=== PATIENT | female | born 1990 | race Caucasian/White ===

== ENCOUNTER 2017-01-23 20:58 | Emergency (ER) | payer OTHER, BC ==
[~2017-01-23] VITALS: Ht 149.9 cm; Wt 46.9 kg
[2017-01-23 21:04] VITALS: TEMP 37.4; Ht 149.9 cm; Wt 46.9 kg
--- NOTE | 2017-01-23 21:35 | EMERGENCY ROOM VISIT NOTE ---
History First contact with patient: 21:18 Chief Complaint: URINARY SYMPTOMS Stated Complaint: BACK PAIN, ABD [AIN,PAIN WHEN URINATE, NAUSEA Nursing Triage Summary: Urinary freq x 1 week. Nausea two days ago. B/L flank pain. History of Present Illness The patient is a 26 year old female who presents to the Emergency Room with complaints of a 4 day history of flank pain and urinary symptoms. The patient has had increasing urinary frequency, cloudy urine, dysuria described as pinching on urination, and flank pain that is radiating up her spine as well as towards the abdomen. He back pain acutely worsened when she woke up this morning and is now a 10/10. She also states that there has been blood on toilet paper when wiping after urination this morning. She denies any fevers or chill, vomiting, abdominal pain, diarrhea or constipation. Review of Systems See HPI for pertinent positives and negatives. A total of ten systems were reviewed and were otherwise negative. Past Medical/Surgical History Medical Problems: (1) No significant active problems Social History Smoking Status: Never Smoker Drug Use: none Current/Historical Medications Scheduled Ciprofloxacin Hcl (Cipro), 500 MG PO BID Allergies Coded Allergies: Cefaclor (Unverified Allergy, Unknown, RASH, 01/23/17) Physical Exam Vital Signs Date Time Temp Pulse Resp B/P Pulse Ox O2 Delivery O2 Flow Rate FiO2 01/23/17 22:58 75 16 118/81 99 Room Air 01/23/17 21:04 37.4 90 18 137/95 98 Room Air Physical Exam GENERAL: Awake, alert, well-appearing, in no distress HENT: Normocephalic, atraumatic. Oropharynx unremarkable. EYES: Normal conjunctiva. Sclera non-icteric. NECK: Supple. Trachea Midline. No nuchal rigidity. RESPIRATORY: Clear to auscultation. CARDIAC: Regular rate, normal rhythm. Extremities warm and well perfused. Pulses equal. ABDOMEN: Soft, non-distended. No tenderness to palpation. No rebound or guarding. No masses. RECTAL: Deferred. MUSCULOSKELETAL: Chest examination reveals no tenderness. The back is symmetrical on inspection without obvious abnormality. There is moderate CVA tenderness to palpation. LOWER EXTREMITIES: Calves are equal size bilaterally and non-tender. No edema. No discoloration. NEURO: Normal sensorium. No sensory or motor deficits noted. SKIN: No rash or jaundice noted. Medical Decision & Procedures Laboratory Results 01/23/17 22:00 Red Blood Count 4.38, Mean Corpuscular Volume 87.9, Mean Corpuscular Hemoglobin 30.1, Mean Corpuscular Hemoglobin Concent 34.3, Mean Platelet Volume 10.0, Neutrophils (%) (Auto) 71.5, Lymphocytes (%) (Auto) 18.2, Monocytes (%) (Auto) 9.2, Eosinophils (%) (Auto) 0.7, Basophils (%) (Auto) 0.2, Neutrophils # (Auto) 8.60, Lymphocytes # (Auto) 2.19, Monocytes # (Auto) 1.11, Eosinophils # (Auto) 0.09, Basophils # (Auto) 0.02 01/23/17 22:00 Test 01/23/17 22:00 White Blood Count 12.04 K/uL (4.8-10.8) Red Blood Count 4.38 M/uL (4.2-5.4) Hemoglobin 13.2 g/dL (12.0-16.0) Hematocrit 38.5 % (37-47) Mean Corpuscular Volume 87.9 fL (80-100) Mean Corpuscular Hemoglobin 30.1 pg (25-34) Mean Corpuscular Hemoglobin Concent 34.3 g/dl (32-36) Platelet Count 244 K/uL (130-400) Mean Platelet Volume 10.0 fL (7.4-10.4) Neutrophils (%) (Auto) 71.5 % Lymphocytes (%) (Auto) 18.2 % Monocytes (%) (Auto) 9.2 % Eosinophils (%) (Auto) 0.7 % Basophils (%) (Auto) 0.2 % Neutrophils # (Auto) 8.60 K/uL (1.4-6.5) Lymphocytes # (Auto) 2.19 K/uL (1.2-3.4) Monocytes # (Auto) 1.11 K/uL (0.11-0.59) Eosinophils # (Auto) 0.09 K/uL (0-0.5) Basophils # (Auto) 0.02 K/uL (0-0.2) RDW Standard Deviation 41.2 fL (36.4-46.3) RDW Coefficient of Variation 12.7 % (11.5-14.5) Immature Granulocyte % (Auto) 0.2 % Immature Granulocyte # (Auto) 0.03 K/uL (0.00-0.02) Red Blood Cell Morphology Unremarkable Urine Color YELLOW Urine Appearance CLEAR (CLEAR) Urine pH 6.5 (4.5-7.5) Urine Specific [place] 1.014 (1.000-1.030) Urine Protein 1+ (NEG) Urine Glucose (UA) NEG (NEG) Urine Ketones NEG (NEG) Urine Occult Blood 2+ (NEG) Urine Nitrite NEG (NEG) Urine Bilirubin NEG (NEG) Urine Urobilinogen NEG (NEG) Urine Leukocyte Esterase LARGE (NEG) Urine WBC (Auto) >30 /hpf (0-5) Urine RBC (Auto) >30 /hpf (0-4) Urine Hyaline Casts (Auto) 1-5 /lpf (0-5) Urine Epithelial Cells (Auto) 5-10 /lpf (0-5) Urine Bacteria (Auto) NEG (NEG) Urine Test NEG (NEG) Anion Gap 5.0 mmol/L (3-11) Est Creatinine Clear Calc Drug Dose 83.4 ml/min Estimated GFR () 138.2 Estimated GFR (Non- 119.2 BUN/Creatinine Ratio 22.8 (10-20) Calcium Level 8.9 mg/dl (8.5-10.1) Date/Time Source Procedure Growth Status 01/23/17 22:00 Urine , Clean Catch Urine Culture - Final Staphylococcus Saprophyticus Complete Medications Administered Medications (Trade) Dose Ordered Sig/Jimmy Route Start Time Stop Time Status Last Admin Dose Admin Sodium Chloride (Nss 1000ml) 1,000 ml @ 999 mls/hr Q1H1M STAT IV 01/23/17 21:36 01/23/17 22:36 DC 01/23/17 22:09 999 MLS/HR Ondansetron HCl (Zofran Inj) 4 mg NOW STAT IV 01/23/17 21:36 01/23/17 21:38 DC 01/23/17 22:09 4 MG Morphine Sulfate (MoRPHine SULFATE INJ) 4 mg NOW STAT IV 01/23/17 21:45 01/23/17 21:46 DC 01/23/17 22:09 4 MG Ciprofloxacin (Cipro Tab) 500 mg NOW STAT PO 01/23/17 22:49 01/23/17 22:50 DC 01/23/17 22:59 500 MG Oxycodone HCl (Roxicodone Immediate Rel 5MG Home Pack) 1 homepack UD ONCE PO 01/23/17 23:00 01/23/17 23:01 DC 01/23/17 22:59 1 HOMEPACK Medical Decision Patient is a 26 year old female with a 4 days history of flank pain and urinary symptoms - Labs Ordered: Urine , Urinalysis, CBC, CMP - Medications: IV NS, Morphine, Zofran Urinalysis results indicated and ongoing UTI so patient was agreeable with plan to be discharged home with a course of Ciprofloxacin for her UTI as well as Percocet for pain as needed. Departure Information Dispostion Home / Self-Care Condition GOOD Prescriptions Ciprofloxacin Hcl (CIPRO) 500 Mg Tab 500 MG PO BID for 7 Days, #14 TAB Prov: Gio rFias M.D. 01/23/17 Patient Instructions My [facility]
[2017-01-23] MEDS ORDERED: SODIUM CHLORIDE 0.9% 1000ML 1,000 ML IV STA (21:36)
[2017-01-23] MEDS ORDERED: ONDANSETRON INJ 2 MG/ML 2 ML VIAL IV STA (21:36)
[2017-01-23] MEDS ORDERED: MoRPHine SULFATE 10 MG/ML CARP/VIAL IV STA (21:36)
[2017-01-23] MEDS ORDERED: MoRPHine SULFATE 4 MG/ML 1 ML CARP\\VIAL IV STA (21:45)
[2017-01-23 22:24] LABS: HEMATOCRIT 38.5 % (37-47); MEAN CELL VOLUME 87.9 fL (80-100); MEAN CORPUSCULAR HEMOGLOBIN 30.1 pg (25-34); MEAN CORPUSCULAR HGB CONC 34.3 g/dl (32-36); PLATELET COUNT 244 K/uL (130-400); RED BLOOD COUNT 4.38 M/uL (4.2-5.4); WHITE BLOOD COUNT 12.04 K/uL (4.8-10.8)
[2017-01-23 22:32] LABS: BUN/CREATININE RATIO 22.8 (10-20); CREATININE 0.71 mg/dl (0.60-1.20); POTASSIUM 3.8 mmol/L (3.5-5.1)
[2017-01-23 22:36] LABS: URINE APPEARANCE CLEAR (CLEAR); URINE BILIRUBIN NEG (NEG); URINE COLOR YELLOW; URINE NITRITE NEG (NEG); URINE PH 6.5 (4.5-7.5); URINE SPECIFIC GRAVITY 1.014 (1.000-1.030); UROBILINOGEN NEG (NEG); ZZUR CULT IF INDIC CLEAN CATCH YES
[2017-01-23 22:37] LABS: MANUAL MICROSCOPIC REQUIRED? NO; REVIEW REQ? NO
[2017-01-23 22:42] LABS: CALCIUM 8.9 mg/dl (8.5-10.1)
[2017-01-23] MEDS ORDERED: CIPR-255 PO (22:49)
[2017-01-23] MEDS ORDERED: CIPROFLOXACIN 500 MG TAB PO STA (22:49)
--- NOTE | 2017-01-23 22:49 | EMERGENCY ROOM VISIT NOTE ---
History Report prepared by Dilma: Marcie Omalley Under the Supervision of: Dr. Gio Frias M.D. First contact with patient: 21:18 Chief Complaint: URINARY SYMPTOMS Stated Complaint: BACK PAIN, ABD [AIN,PAIN WHEN URINATE, NAUSEA Nursing Triage Summary: Urinary freq x 1 week. Nausea two days ago. B/L flank pain. History of Present Illness The patient is a 26 year old female who presents to the Emergency Room with complaints of worsening urinary symptoms for the past week. The patient notes increased urinary frequency and dysuria that she describes as "pinching" with urination. She has cloudy looking urine. She is also experiencing bilateral flank pain and nausea. Today the patient noticed hematuria and her flank pain worsened. It radiates into her abdomen and her back. The patient rates her pain as a 10/10 in severity. She has been taking AZO for her symptoms. She has a history of vaginal infections, but states that this is unlike those previous infections. Source of History: patient Onset: 1 week ago Position: other (urinary) Symptom Intensity: 10/10 Quality: other ("pinching") Timing: worsening Modifying Factors (Worsening): urination Modifying Factors (Relieving): other (AZO) Associated Symptoms: + abdominal pain, + back pain, + urinary symptoms ( increased frequency and dysuria) Review of Systems See HPI for pertinent positives & negatives. A total of 10 systems reviewed and were otherwise negative. Past Medical & Surgical Medical Problems: (1) No significant active problems Family History No pertinent history stated. Social History Smoking Status: Never Smoker Current/Historical Medications Scheduled Ciprofloxacin Hcl (Cipro), 500 MG PO BID Allergies Coded Allergies: Cefaclor (Unverified Allergy, Unknown, RASH, 01/23/17) Physical Exam Vital Signs Date Time Temp Pulse Resp B/P Pulse Ox O2 Delivery O2 Flow Rate FiO2 01/23/17 22:58 75 16 118/81 99 Room Air 01/23/17 21:04 37.4 90 18 137/95 98 Room Air Physical Exam GENERAL: Patient is uncomfortable appearing and in moderate distress. HEENT: No acute trauma, normocephalic atraumatic, mucous membranes moist, no nasal congestion, no scleral icterus. NECK: No stridor, no adenopathy, no meningismus, trachea is midline. LUNGS: No dyspnea. Clear to auscultation and equal bilaterally. No wheeze, no rhonchi. HEART: Regular rate and rhythm. No murmurs, rubs, gallops appreciated. ABDOMEN: Soft, vague suprapubic abdominal tenderness, bowel sounds positive, no masses appreciated, no peritonitis. BACK: No midline tenderness, bilateral CVA tenderness EXTREMITIES: Normal motion all extremities, no cyanosis, no edema. NEUROLOGIC: Alert and oriented, no acute motor or sensory deficits, no focal weakness, cranial nerves grossly intact. SKIN: No rash, no jaundice, no diaphoresis. Medical Decision & Procedures Laboratory Results 01/23/17 22:00 Red Blood Count 4.38, Mean Corpuscular Volume 87.9, Mean Corpuscular Hemoglobin 30.1, Mean Corpuscular Hemoglobin Concent 34.3, Mean Platelet Volume 10.0, Neutrophils (%) (Auto) 71.5, Lymphocytes (%) (Auto) 18.2, Monocytes (%) (Auto) 9.2, Eosinophils (%) (Auto) 0.7, Basophils (%) (Auto) 0.2, Neutrophils # (Auto) 8.60, Lymphocytes # (Auto) 2.19, Monocytes # (Auto) 1.11, Eosinophils # (Auto) 0.09, Basophils # (Auto) 0.02 01/23/17 22:00 Test 01/23/17 22:00 White Blood Count 12.04 K/uL (4.8-10.8) Red Blood Count 4.38 M/uL (4.2-5.4) Hemoglobin 13.2 g/dL (12.0-16.0) Hematocrit 38.5 % (37-47) Mean Corpuscular Volume 87.9 fL (80-100) Mean Corpuscular Hemoglobin 30.1 pg (25-34) Mean Corpuscular Hemoglobin Concent 34.3 g/dl (32-36) Platelet Count 244 K/uL (130-400) Mean Platelet Volume 10.0 fL (7.4-10.4) Neutrophils (%) (Auto) 71.5 % Lymphocytes (%) (Auto) 18.2 % Monocytes (%) (Auto) 9.2 % Eosinophils (%) (Auto) 0.7 % Basophils (%) (Auto) 0.2 % Neutrophils # (Auto) 8.60 K/uL (1.4-6.5) Lymphocytes # (Auto) 2.19 K/uL (1.2-3.4) Monocytes # (Auto) 1.11 K/uL (0.11-0.59) Eosinophils # (Auto) 0.09 K/uL (0-0.5) Basophils # (Auto) 0.02 K/uL (0-0.2) RDW Standard Deviation 41.2 fL (36.4-46.3) RDW Coefficient of Variation 12.7 % (11.5-14.5) Immature Granulocyte % (Auto) 0.2 % Immature Granulocyte # (Auto) 0.03 K/uL (0.00-0.02) Red Blood Cell Morphology Unremarkable Urine Color YELLOW Urine Appearance CLEAR (CLEAR) Urine pH 6.5 (4.5-7.5) Urine Specific [place] 1.014 (1.000-1.030) Urine Protein 1+ (NEG) Urine Glucose (UA) NEG (NEG) Urine Ketones NEG (NEG) Urine Occult Blood 2+ (NEG) Urine Nitrite NEG (NEG) Urine Bilirubin NEG (NEG) Urine Urobilinogen NEG (NEG) Urine Leukocyte Esterase LARGE (NEG) Urine WBC (Auto) >30 /hpf (0-5) Urine RBC (Auto) >30 /hpf (0-4) Urine Hyaline Casts (Auto) 1-5 /lpf (0-5) Urine Epithelial Cells (Auto) 5-10 /lpf (0-5) Urine Bacteria (Auto) NEG (NEG) Urine Test NEG (NEG) Anion Gap 5.0 mmol/L (3-11) Est Creatinine Clear Calc Drug Dose 83.4 ml/min Estimated GFR () 138.2 Estimated GFR (Non- 119.2 BUN/Creatinine Ratio 22.8 (10-20) Calcium Level 8.9 mg/dl (8.5-10.1) Laboratory results as reviewed by me. Medications Administered Medications (Trade) Dose Ordered Sig/Jimmy Route Start Time Stop Time Status Last Admin Dose Admin Sodium Chloride (Nss 1000ml) 1,000 ml @ 999 mls/hr Q1H1M STAT IV 01/23/17 21:36 01/23/17 22:36 DC 01/23/17 22:09 999 MLS/HR Ondansetron HCl (Zofran Inj) 4 mg NOW STAT IV 01/23/17 21:36 5/18/17 21:38 DC 01/23/17 22:09 4 MG Morphine Sulfate (MoRPHine SULFATE INJ) 4 mg NOW STAT IV 01/23/17 21:45 01/23/17 21:46 DC 01/23/17 22:09 4 MG Ciprofloxacin (Cipro Tab) 500 mg NOW STAT PO 01/23/17 22:49 01/23/17 22:50 DC 01/23/17 22:59 500 MG Oxycodone HCl (Roxicodone Immediate Rel 5MG Home Pack) 1 homepack UD ONCE PO 01/23/17 23:00 01/23/17 23:01 DC 01/23/17 22:59 1 HOMEPACK ED Course 2124: The patient was evaluated in room B9. A complete history and physical exam was performed. 2135: Zofran 4 mg IV, Morphine sulfate 6 mg IV, NSS 1000 ml @ 999 mls/hr IV 5: Morphine sulfate 4 mg IV 6: I reassessed the patient at this time and she is doing well. 2246: I reassessed the patient at this time. She is feeling better and resting comfortably. I discussed the results and treatment plan with the patient. I answered all pertaining questions that she had. She expressed understanding and verbalized agreement. The patient will be discharged home. Medical Decision Differential: UTI, Urethritis, Pyelonephritis, STI, Vaginitis, Hyperglycemia, Yeast, PID, Cystitis, Hemorrhagic Cystitis, amongst other pathologies entertained. Very pleasant 26 yr old female arrives with 4 days UTI symptoms now going to bilateral flank. Symptoms consistent with pyelo. Labs consistent with UTI and mild WBC elevation. No fever, no vomiting and vastly improved with morphine, zofran, fluids. Symptoms not consistent with stone and I feel imaging would be unwarranted currently. Cefaclor allergy thus will use Cipro for 1 week. Discussed symptoms requiring RTED for further evaluation. Impression Primary Impression: Pyelonephritis Scribe Attestation The scribe's documentation has been prepared under my direction and personally reviewed by me in its entirety. I confirm that the note above accurately reflects all work, treatment, procedures, and medical decision making performed by me. Departure Information Dispostion Home / Self-Care Prescriptions Ciprofloxacin Hcl (CIPRO) 500 Mg Tab 500 MG PO BID for 7 Days, #14 TAB Prov: Gio Frias M.D. 01/23/17 Forms HOME CARE DOCUMENTATION FORM, IMPORTANT VISIT INFORMATION Patient Instructions ED UTI Pyelonephritis Female, My [facility] Additional Instructions Return if worsening pain, vomiting, fevers, passing out or other concerns. We are always here to help. Take all antibiotics as prescribed. You have received a narcotic pain medication. These medications may cause drowsiness and should not be used with other sedative medications. Do not drive , drink alcohol, perform dangerous activities, nor make important decisions after taking these medications. [facility] use or inappropriate use may lead to addiction.
[2017-01-23 22:58] VITALS: BP 118/81; PULSE 75; O2SAT 99
[2017-01-23] MEDS ORDERED: OXYCODONE IR HOME PACK PO ONE (23:00)
[2017-01-23 23:02] LABS: BASO % 0.2 %; BASO ABS # 0.02 K/uL (0-0.2); COMPLETE YES; EOS % 0.7 %; IG% 0.2 %; LYMPH % 18.2 %; LYMPH ABS # 2.19 K/uL (1.2-3.4); MONO % 9.2 %; NEUT % 71.5 %
== END 2017-01-23 23:05 | disposition home or self-care (01) ==
LOC: C.EDB 21:02
DX: N12 Tubulo-interstitial nephritis, not specified as acute or chronic (principal); N39.0 Urinary tract infection, site not specified